=== PATIENT | female | born 1965 ===

== ENCOUNTER 2017-01-23 04:06 | Emergency (ER) | payer SELFPAY ==
[2017-01-23 04:38] VITALS: RESP 16
--- NOTE | 2017-01-23 04:55 | ED PDOC ---
HPI: Headache Time Seen by Provider: 01/23/17 04:38 Chief Complaint (Nursing): Headache Chief Complaint (Provider): headache History Per: Patient History/Exam Limitations: no limitations Onset/Duration Of Symptoms: Days (2-3 ) Current Symptoms Are (Timing): Still Present Additional Complaint(s): 51yo female with PMHx including cholecystectomy presents to the ED with c/o headache x 2-3 days. Patient reports headache is located to top of head with paresthesias and right sided facial paresthesias and pain with pain behind right ear. Symptoms began following an argument with her . Took Advil for headache. Denies vision changes, v/d, syncope, dizziness. Past Medical History Reviewed: Historical Data, Nursing Documentation, Vital Signs Vital Signs: Last Vital Signs Temp 98.1 F 01/23/17 04:35 Pulse 84 01/23/17 04:35 Resp 16 01/23/17 04:35 BP 128/79 01/23/17 04:35 Pulse Ox 97 01/23/17 04:35 - Medical History PMH: No Chronic Diseases - Surgical History Surgical History: Cholecystectomy - Family History Family History: States: No Known Family Hx - Allergies Allergies/Adverse Reactions: Allergies Allergy/AdvReac Type Severity Reaction Status Date / Time No Known Allergies Allergy Verified 01/23/17 04:38 Review of Systems ROS Statement: Except As Marked, All Systems Reviewed And Found Negative Constitutional: Positive for: Other (no syncope ) Eyes: Negative for: Vision Change ENT: Positive for: Other (pain behind right ear ) Gastrointestinal: Negative for: Vomiting, Diarrhea Neurological: Positive for: Headache, Other (paresthesias ). Negative for: Dizziness Physical Exam - Reviewed Nursing Documentation Reviewed: Yes Vital Signs Reviewed: Yes - Physical Exam Appears: Positive for: Well, No Acute Distress Head Exam: Positive for: ATRAUMATIC, NORMAL INSPECTION, NORMOCEPHALIC Skin: Positive for: Normal Color, Warm, Dry Eye Exam: Positive for: Normal appearance, EOMI, PERRL ENT: Positive for: Normal ENT Inspection Neck: Positive for: Normal, Painless ROM, Supple Cardiovascular/Chest: Positive for: Regular Rate, Rhythm. Negative for: Murmur , Tachycardia Respiratory: Positive for: Normal Breath Sounds. Negative for: Wheezing, Respiratory Distress Gastrointestinal/Abdominal: Positive for: Normal Exam, Bowel Sounds, Soft. Negative for: Tenderness Back: Positive for: Normal Inspection Extremity: Positive for: Normal ROM. Negative for: Deformity, Swelling Neurologic/Psych: Positive for: Alert, Oriented. Negative for: Motor/Sensory Deficits - Laboratory Results Result Diagrams: 01/23/17 05:25 01/23/17 05:25 - ECG O2 Sat by Pulse Oximetry: 97 Pulse Ox Interpretation: Normal (RA) - Progress Re-evaluation Time: 06:27 Condition: Re-examined, Improved Medical Decision Making Medical Decision Makin: Impression: tension headache vs. migraine headache vs. muscle spasm Plan: CT head Labs Reglan 10mg IV, Toradol 15mg IVP reassess [id number]: CT head impression: 1. No acute intracranial abnormality. Scribe Attestation: Documented by Ramez Daley acting as a scribe for Bonny Smith MD. Provider Scribe Attestation: All medical record entries made by the Scribe were at my direction and personally dictated by me. I have reviewed the chart and agree that the record accurately reflects my personal performance of the history, physical exam, medical decision making, and the department course for this patient. I have also personally directed, reviewed, and agree with the discharge instructions and disposition. Disposition - Clinical Impression Clinical Impression: Headache - Patient ED Disposition Is Patient to be Admitted: No Doctor Will See Patient In The: Office Counseled Patient/Family Regarding: Studies Performed, Diagnosis, Need For Followup - Disposition Referrals: [facility] [place] [Outside] Disposition: Routine/Home Disposition Time: 06:28 Condition: GOOD Additional Instructions: Follow up with your PCP in 2-3 days. Take advil for pain at home. Instructions: Acute Headache (ED) Forms: [employer] ED School/Work Excuse Print Language: SINHALA
[2017-01-23 05:32] LABS: BASO % 0.5 % (0.0-2.0); EOS # 0.1 K/uL (0.0-0.7); EOS % 1.7 % (0.0-4.0); LYMPH # 2.5 K/uL (1.0-4.3); LYMPH % 32.7 % (20.0-40.0); MEAN CELL VOLUME 87.5 fl (81.0-99.0); MEAN CORPUSCULAR HEMOGLOBIN 28.8 pg (27.0-31.0); MEAN PLATELET VOLUME 9.2 fl (7.2-11.7); MONO # 0.9 K/uL (0.0-0.8); MONO % 11.2 % (0.0-10.0); NEUT # 4.2 K/uL (1.8-7.0); NEUT % 53.9 % (50.0-75.0); RED CELL DISTRIBUTION WIDTH 13.5 % (11.5-14.5); WHITE BLOOD COUNT 7.7 K/uL (4.8-10.8)
[2017-01-23 05:35] LABS: BLOOD UREA NITROGEN 12 mg/dl (7-17); CARBON DIOXIDE 25 mmol/L (22-30); CHLORIDE 105 mmol/L (98-107); GFR AFRICAN-AMERICAN > 60; GLUCOSE,RANDOM 92 mg/dL (65-105); POTASSIUM 4.1 MMOL/L (3.6-5.0); SODIUM 141 mmol/l (132-148)
--- NOTE | 2017-01-23 05:59 | CT ---
EXAM: CT Head Without Intravenous Contrast CLINICAL HISTORY: 51 years old, female; Pain; Headache; Headache not specified TECHNIQUE: Axial computed tomography images of the head/brain without intravenous contrast. This CT exam was performed using one or more of the following dose reduction techniques: automated exposure control, adjustment of the mA and/or kV according to patient size, and/or use of iterative reconstruction technique. Coronal and sagittal reformatted images were created and reviewed. COMPARISON: No relevant prior studies available. FINDINGS: Brain: No intracranial hemorrhage. No mass. No definite edema. Ventricles: No hydrocephalus. Bones/joints: No acute fracture. Soft tissues: Unremarkable. Sinuses: No acute sinusitis. Mastoid air cells: No mastoid effusion. Orbits: Unremarkable as visualized. IMPRESSION: 1. No acute intracranial abnormality. 2. Incidental/non-acute findings are described above.
[2017-01-23 06:37] VITALS: BP 122/70; PULSE 72; TEMP 98.3
[2017-01-23 06:58] VITALS: O2SAT 97
== END 2017-01-23 06:38 | disposition home or self-care (01) ==
LOC: H.ER 04:06
DX: R51 Headache (principal)

== ENCOUNTER 2017-01-26 20:05 | Emergency (ER) | payer SELFPAY ==
[2017-01-26 20:19] VITALS: BP 142/85; PULSE 87; RESP 17; TEMP 98.1; O2SAT 99
--- NOTE | 2017-01-26 21:55 | ED PDOC ---
HPI: Skin/Bite Injury Time Seen by Provider: 01/26/17 20:47 Chief Complaint (Nursing): Abnormal Skin Integrity Chief Complaint (Provider): rash History Per: Patient History/Exam Limitations: no limitations Onset/Duration Of Symptoms: Days (x 3) Quality Of Symptoms: Itching Additional Complaint(s): Bessie Fortune is a 51 year old female, with a previous medical history of hyperlipidemia, who presents to the ED with complaints of a rash persisting for 3 days. Pt reports to initially experiencing a right sided headache with a burning sensation 4 days prior and the rash developed the following day. Pt describes the rash as itchy and burning. Pt went to the clinic which prescribes acyclovir. Pt reports rash has not subsided and now a prickly sensation developed in the right eye. Pt denies any fever or chills. Pt denies any additional complaints at this time. PMD: none provided Past Medical History Reviewed: Historical Data, Nursing Documentation, Vital Signs Vital Signs: Last Vital Signs Temp 98.1 F 01/26/17 20:13 Pulse 87 01/26/17 20:13 Resp 17 01/26/17 20:13 BP 142/85 01/26/17 20:13 Pulse Ox 99 01/26/17 21:59 - Medical History PMH: Hyperlipidemia - Surgical History Surgical History: Cholecystectomy - Family History Family History: States: No Known Family Hx - Home Medications Home Medications: Ambulatory Orders Medication Instructions Recorded Acyclovir [Zovirax] 800 mg PO BID 01/26/17 predniSONE [predniSONE Tab] 20 mg PO DAILY #12 tab 01/26/17 - Allergies Allergies/Adverse Reactions: Allergies Allergy/AdvReac Type Severity Reaction Status Date / Time No Known Allergies Allergy Verified 01/23/17 04:38 Review of Systems ROS Statement: Except As Marked, All Systems Reviewed And Found Negative Constitutional: Negative for: Chills Eyes: Positive for: Pain (prickly sensation to right eye ). Negative for: Vision Change Skin: Positive for: Rash (right side of the face ) Physical Exam - Reviewed Nursing Documentation Reviewed: Yes Vital Signs Reviewed: Yes - Physical Exam Appears: Positive for: Well, Non-toxic, No Acute Distress Head Exam: Positive for: ATRAUMATIC, NORMAL INSPECTION, NORMOCEPHALIC Skin: Positive for: Warm, Dry, Rash (erythematous raised rash to the right forehead and temporal area.) Eye Exam: Positive for: Normal appearance, EOMI, PERRL, Other (fluorescein eye exam preformed with no uptake. No ulcer visualized to the eye. ). Negative for : Nystagmus, Periorbital swelling, Periorbital tenderness, Conjunctival injection, Scleral icterus ENT: Positive for: Normal ENT Inspection Cardiovascular/Chest: Positive for: Regular Rate, Rhythm Respiratory: Positive for: CNT, Normal Breath Sounds Neurologic/Psych: Positive for: Alert, Oriented - ECG O2 Sat by Pulse Oximetry: 99 (RA) Pulse Ox Interpretation: Normal Medical Decision Making Medical Decision Making: Initial Impression: Rafal Discussed f.u with eyeglass assembler. Pt states she has an eye doctor she sees. Scribe Attestation: Documented by Susan Wylie, acting as a scribe for Fernanda Romero PA-C. Provider Scribe Attestation: All medical record entries made by the Scribe were at my direction and personally dictated by me. I have reviewed the chart and agree that the record accurately reflects my personal performance of the history, physical exam, medical decision making, and the department course for this patient. I have also personally directed, reviewed, and agree with the discharge instructions and disposition. Disposition - Clinical Impression Clinical Impression: Rafal - Patient ED Disposition Is Patient to be Admitted: No - Disposition Referrals: Shay Erwin MD [Staff Provider] - Disposition: Routine/Home Disposition Time: 22:21 Condition: STABLE Prescriptions: predniSONE [predniSONE Tab] 20 mg PO DAILY #12 tab Instructions: Rafal (ED) Print Language: SLOVENIAN
== END 2017-01-26 22:23 | disposition home or self-care (01) ==
LOC: H.ER 20:05
DX: B02.9 Zoster without complications (principal); E78.5 Hyperlipidemia, unspecified

== ENCOUNTER 2017-02-11 11:49 | Emergency (ER) | payer SELFPAY ==
[2017-02-11 11:57] VITALS: BP 112/82; PULSE 84; RESP 20; TEMP 98.5; O2SAT 97
[2017-02-11] MEDS ORDERED: Oxycodone/Acetaminophen 5/325 mg Tab PO STA (12:25)
[2017-02-11] MEDS ORDERED: TDAP Vaccine 0.5 mL Syr IM ONE (12:25)
--- NOTE | 2017-02-11 12:30 | ED PDOC ---
Lower Extremity Pain/Injury Time Seen by Provider: 02/11/17 12:15 Chief Complaint (Nursing): Trauma Chief Complaint (Provider): Right Foot Lacerations History Per: Patient, Family (son) History/Exam Limitations: no limitations Onset/Duration Of Symptoms: Hrs (sustained just prior to arrival) Current Symptoms Are (Timing): Still Present Additional Complaint(s): Bessie Fortune is a 51 year old female, with no pertinent past medical history, who presents to the ED on 02/11/17 for the evaluation of multiple lacerations that she had sustained to her right foot just prior to arrival. Patient states that she had been attempting to exit her shower by pushing open the glass door when the door, which had gotten stuck, had popped of of its hinges and shattered into multiple pieces. Patient reports that a large piece had fallen onto the affected foot but that she had also shaken pieces out of her hair and off of her back/shoulders. She still reports multiple tiny prickling sensations diffusely all over her body, as if she is still covered in tiny glass pieces, but otherwise denies any additional complaints. Tetanus vaccination is not up to date. Of note, patient does report having recently completed a course of antibiotics for a case of shingles. PMD: none Past Medical History Reviewed: Historical Data, Nursing Documentation, Vital Signs Vital Signs: Last Vital Signs Temp 98.5 F 02/11/17 11:51 Pulse 84 02/11/17 11:51 Resp 20 02/11/17 11:51 BP 112/82 02/11/17 11:51 Pulse Ox 97 02/11/17 11:51 - Medical History PMH: Hyperlipidemia - Surgical History Surgical History: Cholecystectomy, - Family History Family History: States: Unknown Family Hx - Living Arrangements Living Arrangements: With Family - Social History Current smoker - smoking cessation education provided: No Alcohol: None Drugs: Denies - Home Medications Home Medications: Ambulatory Orders Medication Instructions Recorded Acyclovir [Zovirax] 800 mg PO BID 01/26/17 predniSONE [predniSONE Tab] 20 mg PO DAILY #12 tab 01/26/17 Cephalexin [cephalexin] 500 mg PO BID #14 cap 02/11/17 - Allergies Allergies/Adverse Reactions: Allergies Allergy/AdvReac Type Severity Reaction Status Date / Time No Known Allergies Allergy Verified 02/11/17 12:48 Review of Systems Musculoskeletal: Positive for: Foot Pain (multiple lacerations, right foot) Physical Exam - Reviewed Nursing Documentation Reviewed: Yes Vital Signs Reviewed: Yes - Physical Exam Appears: Positive for: Non-toxic, No Acute Distress Cardiovascular/Chest: Positive for: Other (no lacerations/abrasions noted to torso) Extremity: Positive for: Normal ROM (FROM of right ankle and of all toes on right foot), Capillary Refill (<2 seconds), Other (multiple superficial abrasions noted to b/l upper extremities; 3cm laceration noted just above right lateral malleolus, 1cm superficial laceration noted to dorsum of right foot, 2cm laceration noted over right great toe with mild active bleeding, small 1cm skin flap noted over right 5th toe; fine glass particles noted over chest wall, back, extremities and hair). Negative for: Deformity Neurologic/Psych: Positive for: Alert, Oriented - ECG O2 Sat by Pulse Oximetry: 97 (RA) Pulse Ox Interpretation: Normal Medical Decision Making Medical Decision Makin:15 Initial Impression: right foot lacerations Initial Plan: * Laceration Repair * TDAP 0.5ml IM * Keflex 500mg PO * Percocet 1 tab PO * Reevaluation Affected foot soaked in a solution of NS and betadyne prior to laceration repair , see procedure note for additional details. Small glass particle also removed from right heel and from bottom of right great toe respectively, though wounds did not necessitate suture repair. Superficial abrasions on right forearm also cleaned/addressed. Will order XR Right foot to assess for any additional foreign bodies missed during initial examination. Scribe Attestation: Documented by Quynh Gonzáles, acting as a scribe for Sandy Liriano PA-C. Provider Scribe Attestation: All medical record entries made by the Scribe were at my direction and personally dictated by me. I have reviewed the chart and agree that the record accurately reflects my personal performance of the history, physical exam, medical decision making, and the department course for this patient. I have also personally directed, reviewed, and agree with the discharge instructions and disposition. Procedures - Time-Out Type of Procedure: Laceration Repair Site of Procedure: Right Ankle/Foot Correct Patient (with visual ID + MR# on ID Band): Yes Correct Procedure: Yes Correct Site Marked: Yes - Laceration/Wound Repair Right Ankle (above lateral malleolus) Wound Length (cm): 3 Wound's Depth, Shape: superficial Wound Explored: no foreign body removed Betadine Prep?: Yes (foot soaked in NS/betadyne solution) Anesthesia: 1% Lidocaine Volume Anesthetic (ccs): 2 Wound Repaired With: Sutures Suture Size/Type: 5:0, nylon Number of Sutures: 3 (simple interrupted) Layer Closure?: No Wound Complexity: Simple Sterile Dressing Applied?: Yes Splint Applied?: No Sling Applied?: No Progress: Good approximation, patient tolerated well with no immediate complications. Dorsum of Right Foot Wound Length (cm): 1 Wound's Depth, Shape: superficial Wound Explored: foreign body removed (2 small glass particles identified and removed) Betadine Prep?: Yes (foot soaked in NS/betadyne solution) Anesthesia: 1% Lidocaine Volume Anesthetic (ccs): 2 Wound Repaired With: Sutures Suture Size/Type: 5:0, nylon Number of Sutures: 2 (simple interrupted) Layer Closure?: No Wound Complexity: Simple Sterile Dressing Applied?: Yes Splint Applied?: No Sling Applied?: No Progress: Good approximation, patient tolerated well with no immediate complications. Over right great toe Wound Length (cm): 2 Wound's Depth, Shape: superficial Betadine Prep?: Yes (foot soaked in NS/betadyne solution) Anesthesia: 1% Lidocaine Volume Anesthetic (ccs): 2 Wound Repaired With: Sutures Suture Size/Type: 5:0, nylon Number of Sutures: 2 (simple interrupted) Layer Closure?: No Wound Complexity: Simple Progress: Good approximation, patient tolerated well with no immediate complications. Disposition - Clinical Impression Clinical Impression: Foreign body (FB) in soft tissue, Lacerations of multiple sites without complication, Abrasions of multiple sites - Patient ED Disposition Is Patient to be Admitted: No - Disposition Disposition: Routine/Home Disposition Time: 14:26 Condition: STABLE Prescriptions: Cephalexin [cephalexin] 500 mg PO BID #14 cap Instructions: Laceration (ED), Soft Tissue Foreign Body (ED) Print Language: CHINESE - NORMA Present On Arrival: None
[2017-02-11] MEDS ORDERED: Oxycodone/Acetaminophen 5/325 mg Tab ONE (12:31)
== END 2017-02-11 14:11 | disposition home or self-care (01) ==
LOC: H.ER 11:49
DX: S91.311A Laceration without foreign body, right foot, initial encounter (principal); W26.0XXA Contact with knife, initial encounter; Y92.002 Bathroom of unspecified non-institutional (private) residence as the place of occurrence of the external cause